=== PATIENT | male | born 1995 ===

== ENCOUNTER 2021-06-06 15:05 | Emergency (ER) | payer OTHER ==
[2021-06-06 15:16] VITALS: RESP 18
[2021-06-06 15:17] LABS: Glucose,Whole Blood 412 mg/dL (75-99)
[2021-06-06] MEDS ORDERED: SODIUM CHLORIDE 0.9% 1,000 ML IV STA (15:44)
[2021-06-06] MEDS ORDERED: ONDANSETRON 4 MG/2 ML VIAL IVP STA (15:44)
[2021-06-06] MEDS ORDERED: KETOROLAC 15 MG/ML 1 ML VIAL IVP STA (16:01)
[2021-06-06 16:15] LABS: Appearance,Urine Clear (Clear); Bilirubin,Urine Negative (Negative); Blood,Urine Negative (Negative); Color,Urine Light Yellow; Glucose,Urine (UA) 4+ (Negative); Ketones,Urine Negative (Negative); Leukocyte Esterase,Urine Negative (Negative); Nitrite,Urine Negative (Negative); PH, Urine 5.5 (5.0-8.0); Protein,Urine Negative (Negative); Specific Gravity,Urine 1.038 (1.001-1.035); Urobilinogen,Urine <2.0 mg/dL (<2.0)
[2021-06-06 16:16] LABS: Basophils # (A) 0.1 k/uL (0-0.2); Basophils % (A) 1 %; Eosinophils # (A) 0.1 k/uL (0-0.7); Eosinophils % (A) 1 %; HCT 45.6 % (39.0-53.0); Lymphocytes # (A) 2.5 k/uL (1.0-4.8); Lymphocytes % (A) 41 %; MCH 28.2 pg (25.0-35.0); MCV 80.4 fL (80.0-100.0); Mean Platelet Volume 8.9; Monocytes # (A) 0.2 k/uL (0-1.0); Monocytes % (A) 4 %; Neutrophils # (A) 3.3 k/uL (1.3-7.7); Neutrophils % (A) 52 %; Platelet Count 176 k/uL (150-450); RBC 5.67 m/uL (4.30-5.90); WBC 6.2 k/uL (3.8-10.6)
[2021-06-06 16:21] LABS: VBG PH 7.37 (7.31-7.41)
[2021-06-06 16:27] LABS: ALT 31 U/L (4-49); AST 35 U/L (17-59); African American GFR (CKD) >90 (>60 ml/min/1.73 sqM); Albumin 4.4 g/dL (3.5-5.0); Alkaline Phosphatase 110 U/L (38-126); Anion Gap 14 mmol/L; Blood Urea Nitrogen 13 mg/dL (9-20); Calcium 9.2 mg/dL (8.4-10.2); Carbon Dioxide 19 mmol/L (22-30); Chloride 100 mmol/L (98-107); Glucose 388 mg/dL (74-99); Lipase 102 U/L (23-300); Non-African American GFR(CKD) >90 (>60 ml/min/1.73 sqM); Potassium 4.3 mmol/L (3.5-5.1); Sodium 133 mmol/L (137-145); Total Bilirubin 0.6 mg/dL (0.2-1.3); Total Protein 7.4 g/dL (6.3-8.2)
[2021-06-06] MEDS ORDERED: SODIUM CHLORIDE 0.9% 1,000 ML IV ONE (16:38)
[2021-06-06 17:22] LABS: Glucose,Whole Blood 328 mg/dL (75-99)
[2021-06-06] MEDS ORDERED: metFORMIN 500 MG TAB PO STA (17:26)
--- NOTE | 2021-06-06 17:36 | ED ---
General Adult HPI - General Chief complaint: Nausea/Vomiting/Diarrhea Stated complaint: vomiting Time Seen by Provider: 06/06/21 15:10 Source: patient Mode of arrival: ambulatory Limitations: no limitations - History of Present Illness Initial comments: The patient is a 26-year-old male with past history of type 2 diabetes who presents to emergency room with reported nausea and vomiting. The patient began having symptoms yesterday night. He has generally not been feeling well and had several episodes of nonbilious, nonbloody vomiting. She also admits to some left lower quadrant abdominal pain. He admits to history of similar symptoms in the past. States he is a diabetic and has had pancreatitis. He is supposed to be on metformin and insulin however has not had these medications since 5 months. Moved to the area and has not established care. States he does not regularly check his sugars. He denies any sick contacts or recent travel. No diarrhea. Denies any black or bloody stools. No changes in his urination. Denies any rashes. No contact with Covid. No fevers. No other alleviating, precipitating or modifying factors - Related Data Previous Rx's Medication Instructions Recorded Blood Sugar Diagnostic [Glucose 1 each MC BID #60 strip 06/06/21 Test Strip] Lancets 1 each MC BID #60 each 06/06/21 metFORMIN HCL [Glucophage] 500 mg PO BID #60 tab 06/06/21 Allergies Allergy/AdvReac Type Severity Reaction Status Date / Time No Known Allergies Allergy Verified 06/06/21 15:16 Review of Systems ROS Statement: Those systems with pertinent positive or pertinent negative responses have been documented in the HPI. ROS Other: All systems not noted in ROS Statement are negative. Past Medical History Past Medical History: Diabetes Mellitus Additional Past Medical History / Comment(s): pancreatitis History of Any Multi-Drug Resistant Organisms: None Reported Past Surgical History: Orthopedic Surgery Past Psychological History: No Psychological Hx Reported Smoking Status: Never smoker Past Alcohol Use History: None Reported Past Drug Use History: None Reported General Exam Limitations: no limitations General appearance: alert, in no apparent distress Head exam: Present: atraumatic, normocephalic, normal inspection Eye exam: Present: normal appearance, PERRL, EOMI. Absent: scleral icterus, conjunctival injection, periorbital swelling ENT exam: Present: normal exam, mucous membranes moist Neck exam: Present: normal inspection. Absent: tenderness, meningismus, lymphadenopathy Respiratory exam: Present: normal lung sounds bilaterally. Absent: respiratory distress, wheezes, rales, rhonchi, stridor Cardiovascular Exam: Present: regular rate, normal rhythm, normal heart sounds. Absent: systolic murmur, diastolic murmur, rubs, gallop, clicks GI/Abdominal exam: Present: soft, tenderness (left lower quardant), normal bowel sounds. Absent: distended, guarding, rebound, rigid Extremities exam: Present: normal inspection, full ROM, normal capillary refill. Absent: tenderness, pedal edema, joint swelling, calf tenderness Back exam: Present: normal inspection Neurological exam: Present: alert, oriented X3, CN II-XII intact Psychiatric exam: Present: normal affect, normal mood Skin exam: Present: warm, dry, intact, normal color. Absent: rash Course Vital Signs 06/06/21 06/06/21 15:10 17:57 Temperature 97.4 F L 97.9 F Pulse Rate 85 82 Respiratory 18 18 Rate Blood Pressure 144/95 140/88 O2 Sat by Pulse 96 96 Oximetry Medical Decision Making - Medical Decision Making Upon arrival patient was placed into room 12. Thorough history and physical exa m is performed. IV is established and the patient was given 2 L bolus of normal saline, 15 mg toradol and 4 mg Zofran. Laboratory studies were conducted. Glucose is 388. Lactic acid 3.3. 4+ glucose in the urine. Acetone negative. No signs of DKA. Results are discussed with the patient. Did recommend that he initiate metformin once again. He is given a dose in the emergency department. Patient was given several family medicine physician recommendations. He is to follow-up with them for further medication recommendations. Patient is given prescription for diabetic testing strips, glucose monitor and lancets. He is to return to the emergency room for any new or worsening symptoms. Patient agreed to this and is discharged home in stable condition - Lab Data Result diagrams: 06/06/21 15:47 06/06/21 15:47 Lab Results 06/06/21 06/06/21 06/06/21 Range/Units 15:16 15:47 15:47 WBC 6.2 (3.8-10.6) k/uL RBC 5.67 (4.30-5.90) m/uL Hgb 16.0 (13.0-17.5) gm/dL Hct 45.6 (39.0-53.0) % MCV 80.4 (80.0-100.0) fL MCH 28.2 (25.0-35.0) pg MCHC 35.0 (31.0-37.0) g/dL RDW 13.0 (11.5-15.5) % Plt Count 176 (150-450) k/uL MPV 8.9 Neutrophils % 52 % Lymphocytes % 41 % Monocytes % 4 % Eosinophils % 1 % Basophils % 1 % Neutrophils # 3.3 (1.3-7.7) k/uL Lymphocytes # 2.5 (1.0-4.8) k/uL Monocytes # 0.2 (0-1.0) k/uL Eosinophils # 0.1 (0-0.7) k/uL Basophils # 0.1 (0-0.2) k/uL VBG pH (7.31-7.41) VBG pCO2 (37-51) mmHg VBG HCO3 (24-28) mmol/L Sodium (137-145) mmol/L Potassium (3.5-5.1) mmol/L Chloride (98-107) mmol/L Carbon Dioxide (22-30) mmol/L Anion Gap mmol/L BUN (9-20) mg/dL Creatinine (0.66-1.25) mg/dL Est GFR (CKD-EPI)AfAm (>60 ml/min/1.73 sqM) Est GFR (CKD-EPI)NonAf (>60 ml/min/1.73 sqM) Glucose (74-99) mg/dL POC Glucose (mg/dL) 412 H (75-99) mg/dL POC Glu Chemical Plant Manager ID Meka, Beatriz Lactic Ac Sepsis Rflx Plasma Lactic Acid Willard (0.7-2.0) mmol/L Calcium (8.4-10.2) mg/dL Total Bilirubin (0.2-1.3) mg/dL AST (17-59) U/L ALT (4-49) U/L Alkaline Phosphatase (38-126) U/L Total Protein (6.3-8.2) g/dL Albumin (3.5-5.0) g/dL Lipase (23-300) U/L Urine Color Light Yellow Urine Appearance Clear (Clear) Urine pH 5.5 (5.0-8.0) Ur Specific [place] 1.038 H (1.001-1.035) Urine Protein Negative (Negative) Urine Glucose (UA) 4+ H (Negative) Urine Ketones Negative (Negative) Urine Blood Negative (Negative) Urine Nitrite Negative (Negative) Urine Bilirubin Negative (Negative) Urine Urobilinogen <2.0 (<2.0) mg/dL Ur Leukocyte Esterase Negative (Negative) Acetone, Qual (Negative) 06/06/21 06/06/21 06/06/21 Range/Units 15:47 15:47 15:47 WBC (3.8-10.6) k/uL RBC (4.30-5.90) m/uL Hgb (13.0-17.5) gm/dL Hct (39.0-53.0) % MCV (80.0-100.0) fL MCH (25.0-35.0) pg MCHC (31.0-37.0) g/dL RDW (11.5-15.5) % Plt Count (150-450) k/uL MPV Neutrophils % % Lymphocytes % % Monocytes % % Eosinophils % % Basophils % % Neutrophils # (1.3-7.7) k/uL Lymphocytes # (1.0-4.8) k/uL Monocytes # (0-1.0) k/uL Eosinophils # (0-0.7) k/uL Basophils # (0-0.2) k/uL VBG pH 7.37 (7.31-7.41) VBG pCO2 43 (37-51) mmHg VBG HCO3 24 (24-28) mmol/L Sodium 133 L (137-145) mmol/L Potassium 4.3 (3.5-5.1) mmol/L Chloride 100 (98-107) mmol/L Carbon Dioxide 19 L (22-30) mmol/L Anion Gap 14 mmol/L BUN 13 (9-20) mg/dL Creatinine 0.43 L (0.66-1.25) mg/dL Est GFR (CKD-EPI)AfAm >90 (>60 ml/min/1.73 sqM) Est GFR (CKD-EPI)NonAf >90 (>60 ml/min/1.73 sqM) Glucose 388 H (74-99) mg/dL POC Glucose (mg/dL) (75-99) mg/dL POC Glu Chemical Plant Manager ID Lactic Ac Sepsis Rflx Plasma Lactic Acid Willard 3.3 H* (0.7-2.0) mmol/L Calcium 9.2 (8.4-10.2) mg/dL Total Bilirubin 0.6 (0.2-1.3) mg/dL AST 35 (17-59) U/L ALT 31 (4-49) U/L Alkaline Phosphatase 110 (38-126) U/L Total Protein 7.4 (6.3-8.2) g/dL Albumin 4.4 (3.5-5.0) g/dL Lipase 102 (23-300) U/L Urine Color Urine Appearance (Clear) Urine pH (5.0-8.0) Ur Specific [place] (1.001-1.035) Urine Protein (Negative) Urine Glucose (UA) (Negative) Urine Ketones (Negative) Urine Blood (Negative) Urine Nitrite (Negative) Urine Bilirubin (Negative) Urine Urobilinogen (<2.0) mg/dL Ur Leukocyte Esterase (Negative) Acetone, Qual Negative (Negative) 06/06/21 06/06/21 Range/Units 16:33 17:20 WBC (3.8-10.6) k/uL RBC (4.30-5.90) m/uL Hgb (13.0-17.5) gm/dL Hct (39.0-53.0) % MCV (80.0-100.0) fL MCH (25.0-35.0) pg MCHC (31.0-37.0) g/dL RDW (11.5-15.5) % Plt Count (150-450) k/uL MPV Neutrophils % % Lymphocytes % % Monocytes % % Eosinophils % % Basophils % % Neutrophils # (1.3-7.7) k/uL Lymphocytes # (1.0-4.8) k/uL Monocytes # (0-1.0) k/uL Eosinophils # (0-0.7) k/uL Basophils # (0-0.2) k/uL VBG pH (7.31-7.41) VBG pCO2 (37-51) mmHg VBG HCO3 (24-28) mmol/L Sodium (137-145) mmol/L Potassium (3.5-5.1) mmol/L Chloride (98-107) mmol/L Carbon Dioxide (22-30) mmol/L Anion Gap mmol/L BUN (9-20) mg/dL Creatinine (0.66-1.25) mg/dL Est GFR (CKD-EPI)AfAm (>60 ml/min/1.73 sqM) Est GFR (CKD-EPI)NonAf (>60 ml/min/1.73 sqM) Glucose (74-99) mg/dL POC Glucose (mg/dL) 328 H (75-99) mg/dL POC Glu Chemical Plant Manager ID Pauline Beckford Lactic Ac Sepsis Rflx Y Plasma Lactic Acid Willard (0.7-2.0) mmol/L Calcium (8.4-10.2) mg/dL Total Bilirubin (0.2-1.3) mg/dL AST (17-59) U/L ALT (4-49) U/L Alkaline Phosphatase (38-126) U/L Total Protein (6.3-8.2) g/dL Albumin (3.5-5.0) g/dL Lipase (23-300) U/L Urine Color Urine Appearance (Clear) Urine pH (5.0-8.0) Ur Specific [place] (1.001-1.035) Urine Protein (Negative) Urine Glucose (UA) (Negative) Urine Ketones (Negative) Urine Blood (Negative) Urine Nitrite (Negative) Urine Bilirubin (Negative) Urine Urobilinogen (<2.0) mg/dL Ur Leukocyte Esterase (Negative) Acetone, Qual (Negative) Disposition Clinical Impression: Hyperglycemia Disposition: HOME SELF-CARE Condition: Stable Instructions (If sedation given, give patient instructions): Diabetic Hyperglycemia (ED) Additional Instructions: Take your blood sugars daily. Follow up with the primary care doctor for further treatment options. Return to the ED for any new or worsening symptoms. Prescriptions: metFORMIN HCL [Glucophage] 500 mg PO BID #60 tab Blood Sugar Diagnostic [Glucose Test Strip] 1 each MC BID #60 strip Lancets 1 each MC BID #60 each Is patient prescribed a controlled substance at d/c from ED?: No Referrals: lCaude Ferguson MD [STAFF PHYSICIAN] - 1-2 days Adi Grier MD [STAFF PHYSICIAN] - 1-2 days Adeel Romano [STAFF PHYSICIAN] - 1-2 days Time of Disposition: 17:35
[2021-06-06 18:03] VITALS: BP 140/88; PULSE 82; TEMP 97.9
== END 2021-06-06 17:57 | disposition home or self-care (01) ==
LOC: EC 15:05
DX: E11.65 Type 2 diabetes mellitus with hyperglycemia (principal)
CPT/HCPCS: 36415; 80053; 82803; 82009; 83605; 83690; 85025; 81003; 96374; 96375; 96361 ×2; 99284; J2405; J1885

== ENCOUNTER 2021-07-25 14:43 | Emergency (ER) | payer OTHER ==
[2021-07-25 14:53] VITALS: TEMP 97.8
[2021-07-25] MEDS ORDERED: KETOROLAC 15 MG/ML 1 ML VIAL IVP STA (15:30)
[2021-07-25] MEDS ORDERED: SODIUM CHLORIDE 0.9% 1,000 ML IV STA (15:30)
[2021-07-25] MEDS ORDERED: diphenhydrAMINE 50 MG/ML 1 ML VIAL IVP STA (15:30)
[2021-07-25] MEDS ORDERED: PROCHLORPERAZINE INJ 10 MG/2 ML VIAL IVP STA (15:31)
[2021-07-25] MEDS ORDERED: ACETAMINOPHEN TAB 500 MG TAB PO STA (15:33)
--- NOTE | 2021-07-25 16:33 | ED ---
General Adult HPI - General Chief complaint: Headache Stated complaint: Headache,Vision Changes Time Seen by Provider: 07/25/21 15:07 Source: patient, RN notes reviewed, old records reviewed Mode of arrival: ambulatory Limitations: no limitations - History of Present Illness Initial comments: Patient is a 26-year-old male with past medical history remarkable for poorly controlled diabetes secondary to a bout of pancreatitis previously presents to the emergency Department complaining of a 4-5 day history of frontal headaches. He states that the pain medication takes, Advil does seem to improve them however didn't fully go away. Patient describes the headache as a belt like tightening primarily over the bilateral forehead. Does state he has a history of migraines.Denies any head trauma. Denies any weakness, numbness, but does describe generalized fatigue. States he was fixing COVID-19 area and denies any fevers, chills, cough, chest pain, abdominal pain, vomiting. Patient does have a history of diabetes and recently has been more compliant with metformin, however his sugars are still elevated persistently in the 200s. Patient does d escribe some visual changes which are more or less chronic, stating that for the last 22 years he has been having difficulty with his distant vision. He states that the headache seems to somewhat exacerbate is somewhat. His previously seen by an loss prevention investigator and told that it is likely secondary to his diabetes. His describes no acute changes in these symptoms, just that the headache seems to bring them on. He denies any neck pain, stiffness, back pain. Has no other acute complaints at this time. - Related Data Home Medications Medication Instructions Recorded Confirmed Pioglitazone [Actos] 45 mg PO DAILY 07/25/21 07/25/21 metFORMIN HCL [Glucophage] 1,000 mg PO BID 07/25/21 07/25/21 Previous Rx's Medication Instructions Recorded Acetaminophen Tab [Tylenol] 500 mg PO Q6H PRN 7 Days #28 tablet 07/25/21 Ibuprofen [Motrin] 800 mg PO Q8H PRN 7 Days #21 tab 07/25/21 Allergies Allergy/AdvReac Type Severity Reaction Status Date / Time No Known Allergies Allergy Verified 07/25/21 16:35 Review of Systems ROS Statement: Those systems with pertinent positive or pertinent negative responses have been documented in the HPI. Review of Systems: CONST: Denies fever EYES: Endorses chronic history of smoke blurry vision with distant sight ENT: Denies nasal congestion C/V: Denies Chest pain RESP: Denies shortness of breath GI: Denies abdominal pain : Denies dysuria SKIN: Denies rash. MSK: Denies joint pain. NEURO: Endorses headache over his forehead. ROS Other: All systems not noted in ROS Statement are negative. Past Medical History Past Medical History: Diabetes Mellitus Additional Past Medical History / Comment(s): pancreatitis History of Any Multi-Drug Resistant Organisms: None Reported Past Surgical History: Orthopedic Surgery Past Psychological History: No Psychological Hx Reported Smoking Status: Never smoker Past Alcohol Use History: None Reported Past Drug Use History: None Reported General Exam - General Exam Comments Initial Comments: General: Appears in no acute distress. HEAD: Normal with no signs of head trauma. EYES: PERRLA, EOMI, conjunctiva normal, no discharge. Pupils are 3 mm and equal bilaterally. Visual acuity is 20/40 in bilateral eyes which patient state s is typical for him. ENT: Hearing grossly intact, normal oropharynx. RESPIRATORY: Clear breath sounds bilaterally. No wheezes, rales, or rhonchi. C/V: Regular rate and rhythm. S1 and S2 auscultated, no edema, peripheral pulses 2+ and intact throughout ABD: Abd is soft, nontender, nondistended EXT: Normal range of motion, no obvious deformity SKIN: No rashes or lesions observed on exposed skin. NEURO: Alert and oriented 4. Cranial nerves II through XII are intact. No focal sensory strength deficits. Cerebellar function is intact as evident by normal finger nose testing. Patient relates without difficulty. NIH stroke scale is 0. Limitations: no limitations Course Vital Signs 07/25/21 07/25/21 14:51 18:30 Temperature 97.8 F Pulse Rate 98 74 Respiratory 18 20 Rate Blood Pressure 116/81 132/86 O2 Sat by Pulse 96 98 Oximetry Medical Decision Making - Medical Decision Making Based on the patient's presentation and physical exam, I would like to start with obtaining basic laboratory studies 12 possibility of electrolyte abnormality secondary to his poorly controlled diabetes. He was in agreement this plan. Patient will be symptomatically treated with a migraine cocktail consisting of Tylenol, IV Benadryl, Toradol, Compazine, 1 L fluid bolus. His visual changes appear to be somewhat chronic in nature but worse with the headache, and therefore I do not believe need CT imaging at this time and we will re-evaluate following analgesia. He was in agreement with this plan. Patient's laboratory studies are relatively unremarkable except for hyperglycemia of 281. Acetone is negative. Patient is not in DKA. On reevaluation come patient's headache is improved and more manageable at this time and is still complaining of some blurry vision, primarily in the right eye. Due to the persistent neurological complaints, I did express that would like to obtain CT imaging. He was in agreement this plan. Patient's CT head and CTA head revealed no acute intracranial process. On reevaluation, patient's vision is somewhat improved. His headache is also still improved. I did discuss with him that I would like him to follow up with ophthalmology and will provide him with contact information. I do believe it is safer to be discharged home and he was in agreement this plan. I recommended that he continue to take his metformin for his diabetes typically control of his blood sugar, which is likely contributing to his vision. He expressed understanding was in agreement with the plan. I instructed the patient to follow up with their PCP in the next 3 days. I provided contact information for follow up with Dr. Landa. I explained that the patient should return to the emergency department if they experience any worsening symptoms. Strict return precautions were discussed with the patient. The patient expressed understanding of these instructions. I answered all questions that the patient had. The patient was discharged home in good condition with their prescriptions and follow up information. - Lab Data Result diagrams: 07/25/21 16:50 07/25/21 16:14 Lab Results 07/25/21 07/25/21 Range/Units 16:14 16:50 WBC 5.6 (3.8-10.6) k/uL RBC 5.48 (4.30-5.90) m/uL Hgb 15.1 (13.0-17.5) gm/dL Hct 43.3 (39.0-53.0) % MCV 78.9 L (80.0-100.0) fL MCH 27.5 (25.0-35.0) pg MCHC 34.9 (31.0-37.0) g/dL RDW 13.4 (11.5-15.5) % Plt Count 154 (150-450) k/uL MPV 9.2 Neutrophils % 52 % Lymphocytes % 40 % Monocytes % 4 % Eosinophils % 2 % Basophils % 0 % Neutrophils # 2.9 (1.3-7.7) k/uL Lymphocytes # 2.3 (1.0-4.8) k/uL Monocytes # 0.2 (0-1.0) k/uL Eosinophils # 0.1 (0-0.7) k/uL Basophils # 0.0 (0-0.2) k/uL Sodium 136 L (137-145) mmol/L Potassium 4.4 (3.5-5.1) mmol/L Chloride 99 (98-107) mmol/L Carbon Dioxide 24 (22-30) mmol/L Anion Gap 13 mmol/L BUN 14 (9-20) mg/dL Creatinine 0.50 L (0.66-1.25) mg/dL Est GFR (CKD-EPI)AfAm >90 (>60 ml/min/1.73 sqM) Est GFR (CKD-EPI)NonAf >90 (>60 ml/min/1.73 sqM) Glucose 281 H (74-99) mg/dL Calcium 9.8 (8.4-10.2) mg/dL Magnesium 1.5 L (1.6-2.3) mg/dL Acetone, Qual Negative (Negative) Disposition Clinical Impression: Headache, Blurry vision, Diabetes, Hyperglycemia Disposition: HOME SELF-CARE Condition: Good Instructions (If sedation given, give patient instructions): Acute Headache (ED) Prescriptions: Ibuprofen [Motrin] 800 mg PO Q8H PRN 7 Days #21 tab PRN Reason: Pain Acetaminophen Tab [Tylenol] 500 mg PO Q6H PRN 7 Days #28 tablet PRN Reason: Pain Is patient prescribed a controlled substance at d/c from ED?: No Referrals: None,Stated [Primary Care Provider] - 1-2 days Prince Landa MD [STAFF PHYSICIAN] - 1-2 days
[2021-07-25 16:37] LABS: African American GFR (CKD) >90 (>60 ml/min/1.73 sqM); Anion Gap 13 mmol/L; Blood Urea Nitrogen 14 mg/dL (9-20); Calcium 9.8 mg/dL (8.4-10.2); Carbon Dioxide 24 mmol/L (22-30); Chloride 99 mmol/L (98-107); Glucose 281 mg/dL (74-99); Magnesium 1.5 mg/dL (1.6-2.3); Non-African American GFR(CKD) >90 (>60 ml/min/1.73 sqM); Potassium 4.4 mmol/L (3.5-5.1); Sodium 136 mmol/L (137-145)
[2021-07-25 17:01] LABS: Basophils % (A) 0 %; Eosinophils # (A) 0.1 k/uL (0-0.7); Eosinophils % (A) 2 %; HCT 43.3 % (39.0-53.0); HGB 15.1 gm/dL (13.0-17.5); Lymphocytes # (A) 2.3 k/uL (1.0-4.8); Lymphocytes % (A) 40 %; MCH 27.5 pg (25.0-35.0); MCHC 34.9 g/dL (31.0-37.0); MCV 78.9 fL (80.0-100.0); Mean Platelet Volume 9.2; Monocytes # (A) 0.2 k/uL (0-1.0); Monocytes % (A) 4 %; Neutrophils # (A) 2.9 k/uL (1.3-7.7); Neutrophils % (A) 52 %; Platelet Count 154 k/uL (150-450); RBC 5.48 m/uL (4.30-5.90); RDW 13.4 % (11.5-15.5); WBC 5.6 k/uL (3.8-10.6)
--- NOTE | 2021-07-25 18:34 | CT ---
EXAMINATION TYPE: CT brain wo con DATE OF EXAM: 07/25/2021 COMPARISON: None available. HISTORY: Headache, dizziness, vision changes x [address] DLP: 1150.8 mGycm. Automated Exposure Control for Dose Reduction was Utilized. TECHNIQUE: CT scan of the head is performed without contrast. FINDINGS: There is no acute intracranial hemorrhage, mass effect, or midline shift identified. The ventricles and sulci are within normal limits in size. The globes are intact. The visualized sinuse s demonstrate moderate right maxillary sinus mucus retention cyst. IMPRESSION: No acute intracranial hemorrhage, mass effect, or midline shift is seen.
--- NOTE | 2021-07-25 18:49 | CT ---
EXAMINATION TYPE: CT angio head neck DATE OF EXAM: 07/25/2021 HISTORY: Headache, dizziness, vision changes x 6 days. COMPARISON: None available CT DLP: 793.8 mGycm. Automated Exposure Control for Dose Reduction was Utilized. TECHNIQUE: CTA scan of the head/neck is performed with IV Contrast, patient injected with 65 mL of I sovue 370, axial images are obtained, coronal and sagittal reformatted images are reviewed. 3D recons tructed images are created on an independent workstation and reviewed. FINDINGS: There is mild atherosclerosis of the aortic arch. Otherwise normal three-vessel branching of the aort a. There is no evidence of high-grade stenosis, dissection or aneurysm seen in the bilateral common c arotid, cervical internal carotid and vertebral arteries. There is no evidence of high-grade stenosis, dissection or aneurysm in the intracranial internal davis tid arteries, anterior, middle and posterior cerebral arteries as well as in the imaged vertebral and basilar arteries. The communicating arteries are unremarkable. IMPRESSION: No significant abnormality of the CTA head/neck. NASCET criteria was used in interpretation of this exam?
[2021-07-25 19:27] VITALS: BP 132/86; PULSE 74; RESP 20
== END 2021-07-25 19:40 | disposition home or self-care (01) ==
LOC: EC 14:43
DX: R51.9 Headache, unspecified (principal); E11.65 Type 2 diabetes mellitus with hyperglycemia; H53.8 Other visual disturbances; Z79.84 Long term (current) use of oral hypoglycemic drugs
CPT/HCPCS: 99285 ×2; 96374 ×2; 96375 ×3; 96361 ×2; 36415; 80048; 82009; 83735; 85025; 70496; 70450; 70498; J1200; J0780; J1885; Q9967